=== PATIENT | female | born 1950 | race Caucasian/White ===

== ENCOUNTER → 2018-11-19 | Outpatient (CLI) | payer OTHER ==
[~2018-11-19] VITALS: Ht 157.5 cm; Wt 65.8 kg
[~2018-11-19] MED LIST: ALEVE220 MG; ATORVASTATIN CA40 MG PO; CARDIZEM CD180 MG PO; COUMADIN 2 MG TA2 M1 PO; DILTIAZEM 24HR240 M1 PO; ELIQUIS5 MG PO; FLECAINIDE ACET50 M1 PO; GLUCOPHAGE XR500 MG PO; HYDROCODON-ACE1 EAC5 PO; JANUVIA100 MG PO; MUCINEX TA600 MG/TA2 PO; NEXIUM40 MG; PAXIL20 MG; RYTHMOL 150MG150 M1 PO; TESSALON PERLE100 MG PO; TOPROL XL50 MG PO
[2018-11-19 08:01] VITALS: BP 119/70
--- NOTE | 2018-11-19 08:23 | EKG ---
[address] [address] ELECTROCARDIOGRAM REPORT Name: TAZSATNAM SONI [id number] ������������������ Admission: 11/19/18 ������������������ Attend Phys: Tello Das MD, Discharge: ������������������ Date of : 50 Report #: [id number] ����������������������������������������������������������������� [id number] THIS REPORT FOR: //name// [facility] Test Date: 2018-11-19 Test Time: 07:55:33 Pat Name: SATNAM MCGHEE Department: Room: Gender: F Supervisor [employer] Rec[employer]: Marlena HDEZ : 1950 Requested By: Tello Das Order Number: [id number] MD: Silver Hendricks Measurements Intervals [place] Rate: 84 P: OR: QRS: 34 QRSD: 82 T: 121 QT: 359 QTc: 425 Interpretive Statements Atrial fibrillation Borderline repolarization abnormality Compared to ECG 08/15/2016 03:36:58 No significant changes Electronically Signed On 11-19-2018 8:23:37 CDT by Silver Hendricks [email or web address] ��������������������������������������������� <ELECTRONICALLY SIGNED> ���������������������������������������� By: Silver Hendricks MD ��������������������������������������������� 11/19/18 0823 [id number] Silver Hendricks MD /GERMAN
--- NOTE | 2018-11-19 12:15 | TEE ---
[facility] [address] [employer] [place] [address] TRANSESOPHAGEAL ECHOCARDIOGRAM Name: SATNAM MCGHEE Room #: REG CL [facility]#: [id number] ������������� Admission: 11/19/18 ������������� Attend Phys: Tello Das, Discharge: ��� ������������� ��� Date of : 50 Date of Service: 11/19/18 1215 �� Report #: [id number] �������� ��������������������������������������������[id number] THIS REPORT FOR: //name// APPROVED REPORT Study performed: 11/19/2018 08:41:45 EXAM: Transesophageal Echocardiogram/Doppler with Cardioversion Patient Location: Out-Patient Room #: 11 Status: routine BSA: 1.74 HR: 89 bpm BP: 101/52 mmHg Rhythm: Atrial Fibrillation Other Information Study Quality: Good Indications Atrial Fibrillation Echo Enhancing Agent Indication: Rule out Shunt Agent(s) / Amount(s) Used: Agitated Saline 7 cc Procedure After obtaining informed consent, patient underwent transesophageal echo in the [employer]. Type of Sedation : Conscious Sedation Sedation was administered by Gabbi Newman RN. Sedation was achieved intravenously with: Versed (3 mg) Fentanyl (100 mcg) Transesophageal probe was inserted and advanced into esophagus without difficulty by Tello Das MD. Echo enhancement indication: R/O Septal defect. Echo enhancement agent administered: Agitated Saline The TOÑO was performed without complications. Synchronized Cardioversion attempted: Successful Synchronized Cardioversion acheived with 100 Joules x 1, 200 Joules after 2 attempt(s). Rhythm following Synchronized Cardioversion: Normal Sinus Rhythm Throughout the procedure, the blood pressure, pulse oximetry, cardiac rhythm, and rate were monitored. [facility] [address] [place] [address] TRANSESOPHAGEAL ECHOCARDIOGRAM Name: TAZSATNAM NAE Room #: REG CL Ruth#: [id number] ������������� Admission: 11/19/18 ������������� Attend Phys: Tello Das, Discharge: ��� ������������� ��� Date of : 50 Date of Service: 11/19/18 1215 �� Report #: [id number] �������� ��������������������������������������������[id number] The patient tolerated the procedure without adverse effects. Recovery from conscious sedation was uneventful and vital signs were stable. Left Ventricle The left ventricle is normal size. There is normal LV segmental wall motion. There is normal left ventricular wall thickness. Left ventricular systolic function is normal. The left ventricular ejection fraction is within the normal range. LVEF is 60-65%. Right Ventricle The right ventricle is normal size. The right ventricular systolic function is normal. Atria Left atrium is dilated. No thrombus is visualized in the left atrium or appendage. Interatrial septum is intact without evidence of ASD or PFO. Right atrium is dilated. Aortic Valve The aortic valve is normal in structure. No aortic regurgitation is present. There is no aortic valvular stenosis. Mitral Valve The mitral valve is normal in structure. Mild mitral regurgitation. No evidence of mitral valve stenosis. Tricuspid Valve The tricuspid valve is normal in structure. Trace tricuspid regurgitation. Pulmonic Valve The pulmonary valve is normal in structure. There is no pulmonic valvular regurgitation. Great Vessels The aortic root is normal in size. IVC is normal in size and collapses >50% with inspiration. Pericardium There is no pericardial effusion. <Conclusion> Left ventricular systolic function is normal. There is normal LV segmental wall motion. LVEF is 60-65%. [facility] [address] [place] [address] TRANSESOPHAGEAL ECHOCARDIOGRAM Name: SATNAM MCGHEE Room #: REG [facility]#: [id number] ������������� Admission: 11/19/18 ������������� Attend Phys: Tello Das, Discharge: ��� ������������� ��� Date of : 50 Date of Service: 11/19/185 �� Report #: [id number] �������� ��������������������������������������������[id number] Both atria are dilated. No shunting by contrast bubble injection No thrombus is visualized in the left atrium or appendage. The aortic valve is normal in structure. No aortic regurgitation or stenosis The mitral valve is normal in structure. Mild mitral regurgitation. There is no pericardial effusion. Successful cardioversion of atrial fibrillation to sinus rhythm following 2 biphasic synchronous Joule shocks ��������������������������������������������� <ELECTRONICALLY SIGNED> ���������������������������������������� By: Tello Das MD, [facility] ��������������������������������������������� 11/19/18 1215 14 1215 Tello Das MD, FACC /INF
--- NOTE | 2018-11-20 12:48 | EKG ---
[place] [address] [address] [facility] [place] [address] ELECTROCARDIOGRAM REPORT Name: SATNAM MCGHEE [facility] [id number] ������������������ Admission: 11/19/18 ������������������ Attend Phys: Tello Das MD, Discharge: ������������������ Date of : 50 Report #: [id number] ����������������������������������������������������������������� [id number] THIS REPORT FOR: //name// [facility] Test Date: 2018-11-19 Test Time: 09:33:17 Pat Name: SATNAM MCGHEE Department: Room: Gender: F Cardiology Clinical Consultant: Marlena HDEZ : 1950 Requested By: Tello Das Order Number: [id number] MD: Tello Das Measurements Intervals [place] Rate: 81 P: 41 ND: 245 QRS: 43 QRSD: 86 T: 85 QT: 373 QTc: 433 Interpretive Statements Sinus rhythm Prolonged ND interval Borderline repolarization abnormality Compared to ECG 11/19/2018 07:55:33 Atrial fibrillation no longer present Electronically Signed On 11-20-2018 12:48:23 CDT by Tello Das [email or web address] ��������������������������������������������� <ELECTRONICALLY SIGNED> ���������������������������������������� By: Tello Das MD, [facility] ��������������������������������������������� 11/20/18 1248 Tello Das MD, [facility] /EPI
== END | disposition home or self-care (01) ==
LOC: CATH 07:13
DX: I34.0 Nonrheumatic mitral (valve) insufficiency (principal); I48.91 Unspecified atrial fibrillation; E78.5 Hyperlipidemia, unspecified; M79.7 Fibromyalgia; K21.9 Gastro-esophageal reflux disease without esophagitis; Z87.891 Personal history of nicotine dependence; Z98.51 Tubal ligation status; Z79.01 Long term (current) use of anticoagulants; Z96.641 Presence of right artificial hip joint; Z79.899 Other long term (current) drug therapy; Z98.890 Other specified postprocedural states; Z88.2 Allergy status to sulfonamides

== ENCOUNTER → 2020-01-02 | Outpatient (CLI) | payer OTHER | LOC: SJCVC 13:43 | PROVIDERS: ATTEND Internal Medicine | DX: R94.31 Abnormal electrocardiogram [ECG] [EKG] (principal); I48.19 Other persistent atrial fibrillation; I48.0 Paroxysmal atrial fibrillation; E78.5 Hyperlipidemia, unspecified; G47.33 Obstructive sleep apnea (adult) (pediatric); E11.9 Type 2 diabetes mellitus without complications; K21.9 Gastro-esophageal reflux disease without esophagitis; Z79.82 Long term (current) use of aspirin; Z79.899 Other long term (current) drug therapy; Z87.891 Personal history of nicotine dependence; Z79.01 Long term (current) use of anticoagulants; Z82.49 Family history of ischemic heart disease and other diseases of the circulatory system ==

== ENCOUNTER → 2020-02-07 | Outpatient (CLI) | payer OTHER | LOC: CAT 13:19 | PROVIDERS: ATTEND Internal Medicine | DX: Z12.2 Encounter for screening for malignant neoplasm of respiratory organs (principal); J98.4 Other disorders of lung; M25.78 Osteophyte, vertebrae; M40.294 Other kyphosis, thoracic region; Z87.891 Personal history of nicotine dependence ==

== ENCOUNTER → 2020-11-24 | Outpatient (CLI) | payer OTHER ==
[~2020-11-24] MED LIST changes: +ASA81BEC PO; +CRESTOR20 MG PO
== END ==
LOC: SJCVC 11:00
PROVIDERS: ATTEND Internal Medicine
DX: R94.31 Abnormal electrocardiogram [ECG] [EKG] (principal); I48.19 Other persistent atrial fibrillation; E78.5 Hyperlipidemia, unspecified; E11.9 Type 2 diabetes mellitus without complications; K21.9 Gastro-esophageal reflux disease without esophagitis; G47.33 Obstructive sleep apnea (adult) (pediatric); F17.200 Nicotine dependence, unspecified, uncomplicated; Z90.710 Acquired absence of both cervix and uterus; Z88.2 Allergy status to sulfonamides; Z79.01 Long term (current) use of anticoagulants; Z79.82 Long term (current) use of aspirin; Z79.84 Long term (current) use of oral hypoglycemic drugs; Z79.899 Other long term (current) drug therapy; Z82.49 Family history of ischemic heart disease and other diseases of the circulatory system

== ENCOUNTER → 2020-11-26 | Outpatient (CLI) | payer OTHER ==
[~2020-11-26] VITALS: Ht 160 cm; Wt 69.9 kg
[2020-11-26 07:39] VITALS: BP 120/58
--- NOTE | 2020-11-26 09:23 | TEE ---
[facility] [place] [address] TRANSESOPHAGEAL ECHOCARDIOGRAM Name: SATNAM MCGHEE Room #: REG [facility]#: [id number] Admission: 11/26/20 Attend Phys: Tello Das MD, Discharge: Date of : 50 Report #: [id number] THIS REPORT FOR: cc: Earnest Schultz MD, Christopher B. MD Lundgren, Craig H. MD [facility] ~ APPROVED REPORT Study performed: 11/26/2020 07:51:58 EXAM: Transesophageal Echocardiogram with Doppler and cardioversion Patient Location: Out-Patient Room #: 9 Status: routine BSA: 1.69 HR: 85 bpm BP: 127/76 mmHg Rhythm: Atrial Fibrillation Other Information Study Quality: Excellent Indications Atrial Fibrillation Echo Enhancing Agent Indication: Rule out Shunt Agent(s) / Amount(s) Used: Agitated Saline 7 cc Procedure After obtaining informed consent, patient underwent transesophageal echo in the [employer]. Type of Sedation : Conscious Sedation Sedation was administered by Nurse. Sedation start time: 809 Case end Time: 819 Sedation was achieved intravenously with: Versed (5 mg) Fentanyl (50 mcg) Transesophageal probe was inserted and advanced into esophagus without difficulty by Tello Das MD. Echo enhancement indication: R/O Septal defect. Echo enhancement agent administered: Agitated Saline The TOÑO was performed without complications. Synchronized Cardioversion acheived with 120 Joules after 1 [facility] [address] [place] [address] TRANSESOPHAGEAL ECHOCARDIOGRAM Name: SATNAM MCGHEE Room #: REG [facility]#: [id number] Admission: 11/26/20 Attend Phys: Tello Das, Discharge: Date of : 50 Report #: [id number] attempt(s). Rhythm following Synchronized Cardioversion: Normal Sinus Rhythm Throughout the procedure, the blood pressure, pulse oximetry, cardiac rhythm, and rate were monitored. The patient tolerated the procedure without adverse effects. Recovery from conscious sedation was uneventful and vital signs were stable. Left Ventricle The left ventricle is normal size. There is normal LV segmental wall motion. There is normal left ventricular wall thickness. The left ventricular systolic function is normal. The left ventricular ejection fraction is within the normal range. LVEF is 60-65%. Right Ventricle The right ventricle is normal size. The right ventricular systolic function is normal. Atria Left atrium is dilated. No thrombus is visualized in the left atrium or appendage. No shunting by contrast bubble injection The right atrium size is normal. Aortic Valve The aortic valve is normal in structure, trileaflet. No aortic regurgitation is present. There is no aortic valvular stenosis. Mitral Valve The mitral valve is normal in structure. Mild mitral regurgitation. No evidence of mitral valve stenosis. Tricuspid Valve The tricuspid valve is normal in structure. There is no tricuspid valve regurgitation noted. Pulmonic Valve The pulmonary valve is normal in structure. There is no pulmonic valvular regurgitation. Great Vessels The aortic root is normal in size. The ascending aorta is normal in size. IVC is normal in size and collapses >50% with inspiration. Pericardium [facility] [address] [place] [address] TRANSESOPHAGEAL ECHOCARDIOGRAM Name: TAZSATNAM NAE Room #: REG CL [facility]#: [id number] Admission: 11/26/20 Attend Phys: Tello Das, Discharge: Date of : 50 Report #: [id number] There is no pericardial effusion. Critical Notification Physician Notified <Conclusion> The left ventricular systolic function is normal. There is normal LV segmental wall motion. LVEF is 60-65%. Left atrium is dilated. No thrombus is visualized in the left atrium or appendage. No shunting by contrast bubble injection The aortic valve is normal in structure, trileaflet. No aortic regurgitation or stenosis. The mitral valve is normal in structure. Mild mitral regurgitation. There is no pericardial effusion. Successful cardioversion of atrial fibrillation to sinus rhythm following a single 120 J biphasic synchronous shock <ELECTRONICALLY SIGNED> By: Tello Das MD, [facility] 11/26/2023 2 0923 Tello Das MD, FACC /INF
== END | disposition home or self-care (01) ==
LOC: CATH 06:27
PROVIDERS: ATTEND Internal Medicine
DX: I48.91 Unspecified atrial fibrillation (principal); I34.9 Nonrheumatic mitral valve disorder, unspecified; E11.9 Type 2 diabetes mellitus without complications; E78.5 Hyperlipidemia, unspecified; K21.9 Gastro-esophageal reflux disease without esophagitis; M79.7 Fibromyalgia; G47.30 Sleep apnea, unspecified; Z98.890 Other specified postprocedural states; Z79.899 Other long term (current) drug therapy; Z98.51 Tubal ligation status; Z96.641 Presence of right artificial hip joint; Z87.891 Personal history of nicotine dependence; Z79.82 Long term (current) use of aspirin; Z79.01 Long term (current) use of anticoagulants

== ENCOUNTER → 2020-12-29 | Outpatient (CLI) | payer OTHER | LOC: SJCVCIMAG 07:44 | PROVIDERS: ATTEND Internal Medicine | DX: I08.2 Rheumatic disorders of both aortic and tricuspid valves (principal); I11.9 Hypertensive heart disease without heart failure; I48.0 Paroxysmal atrial fibrillation; E78.5 Hyperlipidemia, unspecified; G47.33 Obstructive sleep apnea (adult) (pediatric); K21.9 Gastro-esophageal reflux disease without esophagitis; F17.200 Nicotine dependence, unspecified, uncomplicated; Z90.710 Acquired absence of both cervix and uterus; Z88.2 Allergy status to sulfonamides; Z79.01 Long term (current) use of anticoagulants; Z79.82 Long term (current) use of aspirin; Z79.84 Long term (current) use of oral hypoglycemic drugs; Z79.899 Other long term (current) drug therapy; Z82.49 Family history of ischemic heart disease and other diseases of the circulatory system ==

== ENCOUNTER → 2021-01-15 | Outpatient (CLI) | payer OTHER ==
[~2021-01-15] VITALS: Ht 157.5 cm; Wt 68.2 kg
[2021-01-15 13:10] LABS: HEMATOCRIT 38.2 % (37.0-47.0); MCHC 31.5 g/dL (28.0-37.0); MCV 82.6 fL (80.0-100.0); RBC 4.62 mil/uL (4.20-5.00); RDW 18.1 % (10.5-14.5); WBC 11.8 thou/uL (4.0-11.0)
[2021-01-15 13:19] VITALS: BP 107/67
[2021-01-15 13:27] LABS: PROTIME 10.9 Seconds (10.5-12.1)
[2021-01-15 15:40] VITALS: BP 11/68; BP 111/68
[2021-01-15 15:45] VITALS: BP 108/76
[2021-01-15 15:50] VITALS: BP 106/73
[2021-01-15 15:55] VITALS: BP 110/80
[2021-01-15 16:00] VITALS: BP 114/72
--- NOTE | 2021-01-19 19:07 | PATH ---
[facility] [place] [address] PATHOLOGY RPT PROCEDURE Name: JANIS MCGHEE Room #: REG [facility] M..#: [id number] Admission: 01/15/21 Date of : 50 Discharge: Report #: [id number] Path Case #: [id number] [facility] Accession Number: [id number] . 01 Material submitted: . liver - RT FOCAL LIVER MASS BX. Modifiers: right . 01 Clinical history: . RT LIVER MASS . 02 Diagnosis: Liver, right focal liver mass, needle core biopsy: - MODERATELY DIFFERENTIATED HEPATOCELLULAR CARCINOMA, SEE COMMENT. . (IUV:mml; 01/19/2021) QL 01/19/2021 1117 Local . 02 Comment: Examination shows an eosinophilic glandular neoplasm with ample cytoplasm and intervening areas of necrosis. Portal tracts are not identified within the neoplastic foci. Multiple properly-controlled immunohistochemical stains are performed on block A1. The tumor shows strong reactivity with HepPar1, faint reactivity with Glypican-3, no reactivity with CK19, and increased vascularity with CD34. Immunohistochemical findings support the diagnosis of hepatocellular carcinoma. . Properly-controlled special stains are performed on block A1. Reticulin stain shows loss of intact reticulum, and trichrome stain shows focal cirrhotic architecture present within the background. . Dr. April Helm has seen independent sales representative slides of this case and concurs with the diagnosis rendered. Findings of this case discussed with Dr. Earnest Schultz on the morning of 01/19/2021. . (IUV:mml/central processing technician; 01/19/2021) . 02 Electronically signed: . Darleen Terrell MD, Pathologist NPI- [id number] . 01 Gross description: . The specimen is received in formalin, labeled "Janis Mcghee, focal liver BX" and per the requisition "RT focal liver mass BX". It consists of 4 moss-yellow core soft tissue fragments ranging from 0.3-2.1 cm long and averaging 0.1 cm in diameter. The specimen is entirely submitted between sponges in A1-A3. [address] [address] PATHOLOGY RPT PROCEDURE Name: JANIS MCGHEE Room #: REG CLBrian Miranda#: [id number] Admission: 01/15/21 Date of : 50 Discharge: Report #: [id number] Path Case #: [id number] (MRF; 01/15/2021) MFE/MFE 01/15/2021 2136 Local . 02 Pathologist provided ICD-10: C22.0 . 02 CPT . 618421, I29609, A46653, 333160, 269855 Performed at: [address], [place] [id number] MD Herson Forrester MD Phone: [phone] Performed at: [address] [id number] MD Darleen Terrell MD Phone: [phone]
== END | disposition home or self-care (01) ==
LOC: ULTRA 11:57
PROVIDERS: Radiology Diagnostic Radiology; ATTEND Internal Medicine
DX: C22.0 Liver cell carcinoma (principal); I48.91 Unspecified atrial fibrillation; E11.9 Type 2 diabetes mellitus without complications; E78.5 Hyperlipidemia, unspecified; K21.9 Gastro-esophageal reflux disease without esophagitis; Z98.890 Other specified postprocedural states; Z96.641 Presence of right artificial hip joint; Z79.01 Long term (current) use of anticoagulants; Z79.899 Other long term (current) drug therapy; Z87.891 Personal history of nicotine dependence; Z98.51 Tubal ligation status; Z90.710 Acquired absence of both cervix and uterus; Z88.2 Allergy status to sulfonamides; Z82.49 Family history of ischemic heart disease and other diseases of the circulatory system